=== PATIENT | female | born 1965 | race Caucasian/White ===

== ENCOUNTER 2019-09-18 10:54 | Outpatient (CLI) | payer MEDICARE, OTHER, SELFPAY ==
[2019-09-18 12:56] LABS: TSH 12.86 uIU/mL (0.36-3.74)
[2019-09-18 18:20] LABS: T3, Total 65 ng/dL (97-169)
== END 2019-09-18 11:14 ==
PROVIDERS: PCP Internal Medicine; Visit Provider Internal Medicine Endocrinology, Diabetes & Metabolism
DX: E03.9 Hypothyroidism, unspecified (principal)
CPT/HCPCS: 36415; 84439; 84443; 84480

== ENCOUNTER 2020-07-07 10:47 | Outpatient (CLI) | payer MEDICARE, OTHER, SELFPAY ==
--- NOTE | 2020-07-07 09:00 | DI.RAD_ITS ---
EXAM: XR KNEE LT 3V AP,LAT,KUSHAL CLINICAL HISTORY: left knee pain. TECHNIQUE: 2D digital imaging was performed. COMPARISON: CR RIGHT KNEE 3 VIEWS from 01/12/2016 FINDINGS: BONES: No acute fracture is present. No bony destructive lesion is seen. JOINTS: There is mild periarticular spurring. Joint spaces are well maintained. No joint effusion i s seen. SOFT TISSUE: Normal. IMPRESSION: Mild degenerative changes. DATA REPOSITORY: RADIATION DOSE DELIVERED:
== END 2020-07-07 11:07 ==
PROVIDERS: PCP Nurse Practitioner Adult Health; Referring Provider Nurse Practitioner Adult Health; Visit Provider Student in an Organized Health Care Education/Training Program
DX: M17.12 Unilateral primary osteoarthritis, left knee (principal); M25.562 Pain in left knee; G89.29 Other chronic pain
CPT/HCPCS: 73562; 99204

== ENCOUNTER 2020-07-15 04:01 | Outpatient (CLI) | payer MEDICARE, OTHER, SELFPAY ==
[2020-07-15 17:16] LABS: COMMENT (LAB VIEW ONLY) 70.48 mg/dL; Microalb ug/mg Crea 29.8 ug/mg Cr
[2020-07-15 17:40] LABS: ALT 30 U/L (14-59); AST 33 U/L (15-37); Albumin 3.8 g/dL (3.4-5.0); Alkaline Phosphatase 294 U/L (46-116); Anion Gap 8.9 mmol/L (3-11); BUN 8 mg/dL (7-18); Bilirubin, Total 1.8 mg/dL (0.2-1.0); CO2 26.1 mmol/L (21.0-32.0); CREATININE 1.03 mg/dL (0.55-1.02); Calcium 8.6 mg/dL (8.5-10.1); Calculated LDL 64 mg/dL (<100); Chloride 98 mmol/L (98-107); Cholesterol 170 mg/dL (<200); Estimated GFR 55.84 (mL/min/1.73m2); Glucose 432 mg/dL (74-106); HDL Cholesterol 37 mg/dL (40-60); Potassium 3.7 mmol/L (3.5-5.1); Sodium 133 mmol/L (136-145); TSH (W/Ref FT4) 2.11 uIU/mL (0.36-3.74); Total Protein 7.5 g/dL (6.4-8.2); Triglyceride 348 mg/dL (<150)
[2020-07-17 10:17] LABS: HIV-1/2 Ag & Ab Screen Negative (Negative)
== END 2020-07-15 04:21 ==
PROVIDERS: PCP Nurse Practitioner Adult Health; Visit Provider Nurse Practitioner Adult Health
DX: E78.5 Hyperlipidemia, unspecified (principal); E66.9 Obesity, unspecified; K30 Functional dyspepsia; K75.81 Nonalcoholic steatohepatitis (NASH); E03.9 Hypothyroidism, unspecified; F41.1 Generalized anxiety disorder; F32.9 Major depressive disorder, single episode, unspecified; K21.9 Gastro-esophageal reflux disease without esophagitis
CPT/HCPCS: 36415; 80053; 80061; 87389; 82043; 82570; 84443

== ENCOUNTER 2020-10-16 16:40 | Outpatient (REF) | payer MEDICARE, OTHER, SELFPAY ==
[2020-10-16 18:38] LABS: ALT 35 U/L (14-59); AST 37 U/L (15-37); Alkaline Phosphatase 187 U/L (46-116); Anion Gap 12.1 mmol/L (3-11); BUN 6 mg/dL (7-18); Bilirubin, Total 0.7 mg/dL (0.2-1.0); CO2 24.9 mmol/L (21.0-32.0); Chloride 102 mmol/L (98-107); Glucose 104 mg/dL (74-106); Potassium 3.8 mmol/L (3.5-5.1); Sodium 139 mmol/L (136-145); TSH (W/Ref FT4) 0.16 uIU/mL (0.36-3.74); Total Protein 7.3 g/dL (6.4-8.2)
[2020-10-16 19:49] LABS: FREE T4 2.04 ng/dL (0.76-1.46)
== END 2020-10-16 17:00 ==
LOC: LBO 16:40
PROVIDERS: PCP Nurse Practitioner Adult Health; Visit Provider Nurse Practitioner Adult Health
DX: E03.9 Hypothyroidism, unspecified (principal); E87.1 Hypo-osmolality and hyponatremia; R53.83 Other fatigue; K74.60 Unspecified cirrhosis of liver
CPT/HCPCS: 80053; 84439; 84443

== ENCOUNTER 2020-10-26 01:24 | Outpatient (CLI) | payer MEDICARE, OTHER, SELFPAY ==
--- NOTE | 2020-10-26 14:15 | DI.RAD_ITS ---
EXAM: XR RIBS RT W PA LAT CHEST CLINICAL HISTORY: r/o bony abnorm fx; failed PT, rt sided pain,. TECHNIQUE: 2D digital imaging was performed. COMPARISON: CR RIGHT SHOULDER COMPLETE from 01/12/2016 FINDINGS: Heart size is normal. Mediastinum not widened. Lungs are clear. No pleural effusions. No pneumoth orax. Limited images of the right rib cage do not reveal an obvious fracture. Right clavicle is intact. A C joint not distracted. IMPRESSION: No obvious right rib fracture or rib lesion. No acute pulmonary findings. No pneumothorax. DATA REPOSITORY: RADIATION DOSE DELIVERED:
--- NOTE | 2020-10-26 14:15 | DI.RAD_ITS ---
EXAM: XR THORACIC SPINE COMPLETE CLINICAL HISTORY: r/o bony abnorm fx; failed PT,thoracic back pain,m54.6. TECHNIQUE: 2D digital imaging was performed. COMPARISON: CR THORACIC SPINE from 02/08/2012 FINDINGS: There is no evidence of fracture nor listhesis nor disc space narrowing. No abnormal widening of the paraspinal lines. No significant scoliosis. IMPRESSION: No significant radiograph findings in the on these two views of the thoracic spinal column. DATA REPOSITORY: RADIATION DOSE DELIVERED:
== END 2020-10-26 01:44 ==
PROVIDERS: PCP Nurse Practitioner Adult Health; Visit Provider Nurse Practitioner Adult Health
DX: M54.6 Pain in thoracic spine (principal); R10.9 Unspecified abdominal pain
CPT/HCPCS: 71046; 71100; 72072

== ENCOUNTER 2020-10-26 11:18 | Emergency (ER) | payer MEDICARE, OTHER, SELFPAY ==
[2020-10-26 11:23] VITALS: BP 120/60; PULSE 96; RESP 18; TEMP 36.3; O2SAT 96
--- OUTSIDE RECORDS SUMMARY | 2020-10-26 11:52 | XMS_ITS | Continuity of Care Document ---
:1965 Author Organization [facility] Care Team Providers Name Role Phone [facility] Unavailable Unavailable Social History Combined list of available smoking, tobacco, and other social history on record at [facility] and/or [facility] facilities. The included entries comply with the patient's data sharing authorizations. Social History Response Date Comment Source Type This section is an [facility] empty social history section.
[2020-10-26 12:41] LABS: Abs Immature Grans 0.02 10^3/uL (0.0-0.06); Absolute Basophil Count 0.04 10^3/uL (0.0-0.2); Absolute Eosinophil Count 0.01 10^3/uL (0.0-0.7); Absolute Lymphocyte Count 1.29 10^3/uL (1.2-3.4); Absolute Monocyte Count 0.28 10^3/uL (0.1-0.8); Absolute Neutrophil Count 4.54 10^3/uL (1.2-6.7); Basophils % 0.6; Eosinophils % 0.2; HCT 38.8 % (36.0-46.0); HGB 12.1 g/dL (11.2-15.7); Immature Grans % 0.3; Lymphocytes % 20.9; MCH 30.1 pg (27.0-33.0); MCHC 31.2 % (32.0-36.0); MCV 96.5 fL (80-95); MPV 8.9 fL (8.0-11.0); Monocytes % 4.5; Neutrophils % 73.5; Nucleated RBC 0 %; Platelet Count 166 10^3/uL (130-400); RBC 4.02 10^6/uL (3.93-5.22); RDW 14.2 % (11.7-14.6); RDW-SD 50.3 fL; WBC 6.18 10^3/uL (4.4-10.8)
[2020-10-26 13:00] LABS: ALT 41 U/L (14-59); AST 39 U/L (15-37); Albumin 4.4 g/dL (3.4-5.0); Alkaline Phosphatase 193 U/L (46-116); Anion Gap 10.1 mmol/L (3-11); BUN 7 mg/dL (7-18); Bilirubin, Total 0.9 mg/dL (0.2-1.0); CO2 25.9 mmol/L (21.0-32.0); Calcium 9.6 mg/dL (8.5-10.1); Chloride 104 mmol/L (98-107); Glucose 98 mg/dL (74-106); Potassium 3.9 mmol/L (3.5-5.1); Sodium 140 mmol/L (136-145); Total Protein 8.5 g/dL (6.4-8.2)
--- NOTE | 2020-10-26 14:15 | DI.RAD_ITS ---
EXAM: XR LUMBAR SPINE COMPLETE CLINICAL HISTORY: low back pain, acute on chronic. TECHNIQUE: 2D digital imaging was performed. COMPARISON: No exams were available for comparison FINDINGS: There is no evidence of fracture or listhesis or pars defects. Disc spaces exhibit normal height. T here is no scoliosis. No osseous lesions. Facet joints unremarkable. Relatively rudimentary 12th r ibs are noted. Sacroiliac joints unremarkable. IMPRESSION: No significant radiographic findings in the lumbosacral spinal column. DATA REPOSITORY: RADIATION DOSE DELIVERED:
--- NOTE | 2020-10-26 14:15 | DI.RAD_ITS ---
EXAM: XR KNEE LT 4V AP,LAT,KUSHAL,PAT CLINICAL HISTORY: trauma, knee pain. TECHNIQUE: 2D digital imaging was performed. COMPARISON: CR XR KNEE LT 3V AP,LAT,KUSHAL from 07/07/2020 FINDINGS: There is no evidence of acute fracture. Prominent anterior tibial tubercle is again noted, unchanged . Some irregularity in the appearance of the quadriceps tendon on the lateral view is noted. No abn ormality seen in the superior aspect of the patella. Again noted is an element of medial subluxation of the femoral condyles relative to the tibial platea u, approximately 6 millimeters. There is no prominent joint space narrowing. No large osteophytes. IMPRESSION: Findings as above the with minimal any significant radiographic change compared to 07/07/2020. DATA REPOSITORY: RADIATION DOSE DELIVERED:
[2020-10-26 15:04] LABS: Bilirubin Negative (Negative); Blood Negative (Negative); Clarity Clear (Clear); Glucose Negative (Negative); Ketones Negative (Negative); Leukocyte Esterase Negative (Negative); Nitrite Negative (Negative)
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
[2020-10-26 15:22] VITALS: BP 98/64; PULSE 87; RESP 17; TEMP 36.4; O2SAT 97
[2020-10-26 15:46] VITALS: BP 125/77; PULSE 96; RESP 18; O2SAT 97
--- NOTE | 2020-12-09 15:07 | NUR.NOTE ---
Nursing Note: Accessed patient record to fax the provider note to [facility]. Jaz Ribeiro
== END 2020-10-26 16:24 | disposition home or self-care (01) ==
PROVIDERS: Emergency Provider Student in an Organized Health Care Education/Training Program; PCP Nurse Practitioner Adult Health
DX: M54.5 Low back pain (principal); M25.562 Pain in left knee; G89.29 Other chronic pain; X50.9XXA Other and unspecified overexertion or strenuous movements or postures, initial encounter; E11.9 Type 2 diabetes mellitus without complications; Z79.84 Long term (current) use of oral hypoglycemic drugs; R10.9 Unspecified abdominal pain
CPT/HCPCS: 29505; 36415; 80053; 99284; U0003; 71046; 71100; 72072; 72110; 73564; 81003; 85025

== ENCOUNTER 2020-12-28 01:53 | Outpatient (CLI) | payer MEDICARE, OTHER, SELFPAY ==
--- NOTE | 2020-12-28 | DI.US_ITS ---
EXAM: US ABDOMEN CLINICAL HISTORY: LAUGHLIN CIRRHOSIS, SCREENING FOR HEPATOMA, ASCITES, ETC TECHNIQUE: Ultrasound abdomen performed using standard protocol. COMPARISON: No exams were available for comparison FINDINGS: ABDOMINAL AORTA AND IVC: Visualized portions normal caliber. PANCREAS: Normal where visualized. LIVER: The liver measures 20.0 cm in length. There is diffuse increased echogenicity of the liver co nsistent with hepatic steatosis. Hepatopedal flow in the Portal Vein. No hepatic mass is seen sonogr aphically. GALLBLADDER: No evidence of cholelithiasis. No evidence of wall thickening. No pericholecystic fluid identified. BILIARY SYSTEM: Common bile duct measures < 7 mm. No intrahepatic biliary ductal dilation. BRADSHAW'S SIGN: Negative. KIDNEYS: Kidneys are symmetric in size. No evidence of renal calculi. No evidence of hydronephrosis. No renal mass or cyst identified. SPLEEN: The spleen measures 18.7 cm in length. ASCITES: None seen. IMPRESSION: 1. Hepatosplenomegaly and hepatic steatosis. 2. No evidence of a hepatic mass sonographically. DATA REPOSITORY:
== END 2020-12-28 02:13 ==
PROVIDERS: PCP Nurse Practitioner Adult Health; Visit Provider Physician Assistant Medical
DX: K76.0 Fatty (change of) liver, not elsewhere classified (principal); R16.0 Hepatomegaly, not elsewhere classified
CPT/HCPCS: 76700

== ENCOUNTER 2020-12-28 04:27 | Outpatient (CLI) | payer MEDICARE, OTHER, SELFPAY ==
[2020-12-28 08:17] LABS: Abs Immature Grans 0.02 10^3/uL (0.0-0.06); Absolute Basophil Count 0.03 10^3/uL (0.0-0.2); Absolute Lymphocyte Count 1.28 10^3/uL (1.2-3.4); Absolute Monocyte Count 0.22 10^3/uL (0.1-0.8); Absolute Neutrophil Count 3.94 10^3/uL (1.2-6.7); Basophils % 0.5; HCT 39.9 % (36.0-46.0); HGB 12.7 g/dL (11.2-15.7); Immature Grans % 0.4; Lymphocytes % 23.3; MCH 28.7 pg (27.0-33.0); MCHC 31.8 % (32.0-36.0); MCV 90.1 fL (80-95); MPV 9.1 fL (8.0-11.0); Neutrophils % 71.8; Nucleated RBC 0 %; Platelet Count 140 10^3/uL (130-400); RBC 4.43 10^6/uL (3.93-5.22); RDW 13.9 % (11.7-14.6); RDW-SD 45.7 fL; WBC 5.49 10^3/uL (4.4-10.8)
[2020-12-28 08:26] LABS: INR 1.1 (0.9-1.1)
[2020-12-28 08:42] LABS: Ammonia 28 umol/L (11-32)
[2020-12-28 09:28] LABS: ALT 45 U/L (14-59); AST 33 U/L (15-37); Albumin 3.9 g/dL (3.4-5.0); Alkaline Phosphatase 175 U/L (46-116); Anion Gap 10.3 mmol/L (3-11); BUN 10 mg/dL (7-18); Bilirubin, Total 0.6 mg/dL (0.2-1.0); CO2 25.7 mmol/L (21.0-32.0); CREATININE 0.8 mg/dL (0.55-1.02); Calcium 8.9 mg/dL (8.5-10.1); Chloride 103 mmol/L (98-107); FREE T4 1.77 ng/dL (0.76-1.46); Glucose 116 mg/dL (74-106); Potassium 3.9 mmol/L (3.5-5.1); Sodium 139 mmol/L (136-145); Total Protein 7.4 g/dL (6.4-8.2)
[2020-12-28 09:32] LABS: TSH 0.18 uIU/mL (0.36-3.74)
[2020-12-30 09:23] LABS: AFP Tumor Marker 2.6 ng/mL (<8.1)
[2020-12-30 13:10] LABS: Hemoglobin A1C 5.5 % (<5.7)
== END 2020-12-28 04:28 | disposition home or self-care (01) ==
PROVIDERS: PCP Nurse Practitioner Adult Health; Visit Provider Internal Medicine Gastroenterology
DX: K75.81 Nonalcoholic steatohepatitis (NASH) (principal); K74.60 Unspecified cirrhosis of liver; E03.9 Hypothyroidism, unspecified; K76.0 Fatty (change of) liver, not elsewhere classified; R16.0 Hepatomegaly, not elsewhere classified
CPT/HCPCS: 36415; 80053; 76700; 82105; 82140; 83036; 84439; 84443; 85025; 85610

== ENCOUNTER → 2021-02-18 13:03 | Outpatient (BNVA) | payer MEDICARE, OTHER, SELFPAY | PROVIDERS: PCP Nurse Practitioner Adult Health; Referring Provider Nurse Practitioner Adult Health; Visit Provider Student in an Organized Health Care Education/Training Program | DX: M25.562 Pain in left knee (principal); G89.29 Other chronic pain; E11.9 Type 2 diabetes mellitus without complications; Z98.890 Other specified postprocedural states; Z79.1 Long term (current) use of non-steroidal anti-inflammatories (NSAID) | CPT/HCPCS: 99214 ==

== ENCOUNTER 2021-03-11 01:01 | Outpatient (CLI) | payer MEDICARE, OTHER, SELFPAY ==
--- NOTE | 2021-03-11 09:30 | DI.MRI_ITS ---
Exam(s) MR LOWER JOINT LT WO EXAM: MR LOWER JOINT LT WO CLINICAL HISTORY: Pain, ARTHRITIS LT KNEE, M17.12 TECHNIQUE: Multiplanar multisequence MRI of the knee was performed. COMPARISON: CR XR KNEE LT 4V AP,LAT,KUSHAL,PAT from 10/26/2020 FINDINGS: EFFUSION: There is a minimal amount of increased joint fluid. There is no large joint effusion. The re is no Herbert cyst in the popliteal fossa. SOFT TISSUES: There is fatty atrophy of all of the musculature of the visualized lower thigh. MARROW:There is no evidence of fracture, bone contusion, nor osteochondral defects.. There are no si gnificant osseous lesions. PATELLOFEMORAL COMPARTMENT: There is prominence of the anterior tibial tubercle noted without abnorma l intraosseous signal. Correlation with any history of prior osteotomy recommended. There is promin ent patellar insertion on the anterior tibial tubercle without abnormal signal. Also no significant signal in the subcutaneous tissues anterior to the patellar ligament nor behind the patellar ligament within the anterior intra-articular Hoffa fat pad. There is no evidence of tear of the visualized d istal quadriceps. There is some thinning of the retropatellar cartilage, slightly more so laterally than medially. No abnormal intraosseous signal seen within the posterior patella. No patellar retinacular tears eviden t. No intraosseous signal to suggest recent patellar dislocation. CRUCIATE LIGAMENTS: The anterior cruciate ligament is intact.The posterior cruciate ligament is intac t. MEDIAL COMPARTMENT/MEDIAL MENISCUS: Substance of the anterior and posterior horns of the medial menis cus is thin but without evidence of tear. Meniscal root is intact. Mild-moderate degenerative lara es are noted in the cartilage over the medial femoral condyle. Noosteochondral defects. No osteophy fariba.. MEDIAL COLLATERAL LIGAMENT: Intact LATERAL COMPARTMENT/LATERAL MENISCUS: Also attenuation of the substance of the lateral meniscus but w ithout true tear signal.. No meniscal extrusion. Minimal degenerative changes over the in the Highl and cartilage over the condyle. No osteochondral defects.. No marginal osteophytes. ILIOTIBIAL BAND: Intact LATERAL COLLATERAL LIGAMENT COMPLEX: The fibular collateral ligament is intact. The biceps femoris t endon is intact.Popliteus muscle and tendon are intact. IMPRESSION: 1. The meniscal substance is thin in both the mediolateral compartments but without convincing eviden ce of the true meniscal tears, meniscocapsular separation, meniscal extrusion nor intrusion, nor dege nerative meniscal cysts. 2. Cruciate and collateral ligaments appear intact as does the iliotibial band. 3. Somewhat prominent anterior tibial tubercle and tubercular catch mint surface of the patellar liga ment but without abnormal intraosseous signal nor intra tendinous signal at this level nor in the adj acent pre ligamentous and anterior Hoffa fat. 4. There is generalized fatty atrophy of the musculature in the thigh involving all visualized muscle groups anterior as well as posterior. 5. Small amount of increased joint fluid. No large joint effusion. No Herbert cyst. DATA REPOSITORY:
== END 2021-03-11 01:21 ==
PROVIDERS: PCP Nurse Practitioner Adult Health; Visit Provider Student in an Organized Health Care Education/Training Program
DX: M25.562 Pain in left knee (principal); M17.12 Unilateral primary osteoarthritis, left knee; M25.462 Effusion, left knee; M62.552 Muscle wasting and atrophy, not elsewhere classified, left thigh
CPT/HCPCS: 73721

== ENCOUNTER 2021-03-11 02:09 | Outpatient (CLI) | payer MEDICARE, OTHER, SELFPAY ==
[2021-03-11 15:50] LABS: Abs Immature Grans 0.01 10^3/uL (0.0-0.06); Absolute Basophil Count 0.02 10^3/uL (0.0-0.2); Absolute Lymphocyte Count 1.39 10^3/uL (1.2-3.4); Absolute Neutrophil Count 3.06 10^3/uL (1.2-6.7); Basophils % 0.4; ESR 31 mm//hr (0-30); HCT 40.7 % (36.0-46.0); HGB 12.7 g/dL (11.2-15.7); Immature Grans % 0.2; Lymphocytes % 29.7; MCH 27.4 pg (27.0-33.0); MCHC 31.2 % (32.0-36.0); MCV 87.7 fL (80-95); MPV 9.5 fL (8.0-11.0); Monocytes % 4.3; Neutrophils % 65.4; Nucleated RBC 0 %; Platelet Count 109 10^3/uL (130-400); RBC 4.64 10^6/uL (3.93-5.22); RDW 15.2 % (11.7-14.6); RDW-SD 48.7 fL; WBC 4.68 10^3/uL (4.4-10.8)
[2021-03-11 16:22] LABS: Hemoglobin A1C 6.1 % (<5.7)
[2021-03-11 17:03] LABS: C-Reactive Protein 1.28 mg/dL (0.0-0.3); TSH (W/Ref FT4) 6.77 uIU/mL (0.36-3.74)
[2021-03-11 17:30] LABS: FREE T4 1.18 ng/dL (0.76-1.46)
== END 2021-03-11 02:10 | disposition home or self-care (01) ==
PROVIDERS: PCP Nurse Practitioner Adult Health; Visit Provider Student in an Organized Health Care Education/Training Program
DX: E11.9 Type 2 diabetes mellitus without complications (principal); G89.29 Other chronic pain; M25.562 Pain in left knee; M25.462 Effusion, left knee; M17.12 Unilateral primary osteoarthritis, left knee; M62.552 Muscle wasting and atrophy, not elsewhere classified, left thigh
CPT/HCPCS: 36415; 73721; 85652; 83036; 84439; 84443; 85025; 86140

== ENCOUNTER → 2021-03-25 07:53 | Outpatient (BNVA) | payer MEDICARE, OTHER, SELFPAY | PROVIDERS: PCP Nurse Practitioner Adult Health; Referring Provider Nurse Practitioner Adult Health; Visit Provider Student in an Organized Health Care Education/Training Program | DX: M25.562 Pain in left knee (principal); G89.29 Other chronic pain | CPT/HCPCS: 20610; J1040 ==

== ENCOUNTER 2021-03-25 14:40 | Outpatient (REF) | payer MEDICARE, OTHER, SELFPAY | END 2021-03-25 14:41 | disposition home or self-care (01) | LOC: LBN 14:40 | PROVIDERS: PCP Nurse Practitioner Adult Health; Visit Provider Student in an Organized Health Care Education/Training Program | DX: M25.562 Pain in left knee (principal); M25.462 Effusion, left knee; G89.29 Other chronic pain | CPT/HCPCS: 87070; 87205 ==

== ENCOUNTER 2021-05-24 15:54 | Emergency (ER) | payer MEDICARE, OTHER, SELFPAY ==
[2021-05-24 15:57] VITALS: BP 128/74; PULSE 79; RESP 18; TEMP 37.3; O2SAT 96
--- NOTE | 2021-05-24 16:00 | DI.CT_ITS ---
Exam(s) CT ABDOMEN PELVIS W EXAM: CT ABDOMEN PELVIS W CLINICAL HISTORY: Abdominal Pain TECHNIQUE: Imaging Protocol: Axial computed tomography images with coronal and sagittal reformatted images were created and reviewed CONTRAST MATERIAL: Intravenous: Omnipaque 350 Contrast volume:92 mL Oral: No COMPARISON: CT CT ABDOMEN AND PELVIS W CONTRAST from 11/07/2019 FINDINGS: ABDOMEN: Lung Bases: Normal where visualized. Liver: Fatty infiltration of the liver. The liver measures 20.2 cm in length. No measurable mass. Portal, Superior Mesenteric, and Splenic Veins: Unremarkable. Gallbladder and Biliary Tract: No radiodense calculus or dilation. Pancreas: Normal density, no abnormal calcifications or inflammatory process. Spleen: The spleen measures 19 cm in length. Adrenals: No masses seen. Kidneys: Normal size, contour and axis. No radiodense stones or obstructive uropathy. No masses seen. Abdominal Aorta: Abdominal portion non-dilated. Atherosclerosis. Bowel: No evidence of bowel obstruction. There is mild wall thickening seen throughout the colon. M ild pericolonic stranding is seen particularly around the sigmoid colon and the ascending and proxima l transverse colon. There is a normal retrocecal appendix. There are few diverticula in the colon. Peritoneal Cavity: Small amount of perihepatic ascites. Mild stranding in the mesentery. No free ai r. Lymph Nodes: Mildly enlarged retroperitoneal and mesenteric lymph nodes. Bones: Within normal limits for the patient's age. Soft Tissues: Unremarkable. PELVIS: Bladder: Symmetric distention, no gross wall thickening. Reproductive Organs: Status post hysterectomy. Lymph Nodes: Within normal limits. Bones: Within normal limits for the patient's age. IMPRESSION: 1. Mild diffuse bowel wall thickening and pericolonic stranding. This is suspicious for an inflammat ory infectious colitis. 2. Splenomegaly and hepatomegaly. Hepatic steatosis. 3. Mildly prominent lymph nodes. These may be reactive related to the bowel abnormalities. Lymphoma cannot be entirely excluded given the splenomegaly. Please correlate clinically. RADIATION DOSE DELIVERED: 1,224.38mGy.cm Total DLP DATA REPOSITORY: All CT scans at this facility are submitted to the National Radiology Data Registry (NRDR) Dose Index Registry (DIR) with the [employer] (ACR). RADIATION OPTIMIZATION: All CT scans at this facility use at least one of these dose optimization te chniques: automated exposure control; mA and/or kV adjustment per patient size (includes targeted exa ms where dose is matched to clinical indication); or iterative reconstruction.
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
[2021-05-24 16:21] LABS: Abs Immature Grans 0.02 10^3/uL (0.0-0.06); Absolute Basophil Count 0.01 10^3/uL (0.0-0.2); Absolute Eosinophil Count 0.01 10^3/uL (0.0-0.7); Absolute Lymphocyte Count 1.31 10^3/uL (1.2-3.4); Absolute Monocyte Count 0.23 10^3/uL (0.1-0.8); Basophils % 0.3; Eosinophils % 0.3; HCT 36.4 % (36.0-46.0); HGB 11.8 g/dL (11.2-15.7); Immature Grans % 0.5; Lymphocytes % 32.9; MCH 28.5 pg (27.0-33.0); MCHC 32.4 % (32.0-36.0); MCV 87.9 fL (80-95); Monocytes % 5.8; Neutrophils % 60.2; Nucleated RBC 0 %; Platelet Count 101 10^3/uL (130-400); RBC 4.14 10^6/uL (3.93-5.22); RDW 15.4 % (11.7-14.6); RDW-SD 49.6 fL; WBC 3.98 10^3/uL (4.4-10.8)
[2021-05-24 16:34] LABS: ALT 40 U/L (14-59); AST 32 U/L (15-37); Albumin 3.9 g/dL (3.4-5.0); Alkaline Phosphatase 138 U/L (46-116); Anion Gap 10.9 mmol/L (3-11); BUN 8 mg/dL (7-18); Bilirubin, Total 0.5 mg/dL (0.2-1.0); CO2 26.1 mmol/L (21.0-32.0); CREATININE 0.9 mg/dL (0.55-1.02); Calcium 8.8 mg/dL (8.5-10.1); Chloride 102 mmol/L (98-107); Glucose 115 mg/dL (74-106); Lipase 57 U/L (73-393); Magnesium 1.8 mg/dL (1.8-2.4); Potassium 3.7 mmol/L (3.5-5.1); Sodium 139 mmol/L (136-145); Total Protein 7.3 g/dL (6.4-8.2)
[2021-05-24 16:34] LABS: Bilirubin Negative (Negative); Blood Negative (Negative); Clarity Clear (Clear); Glucose Negative (Negative); Ketones Negative (Negative); Leukocyte Esterase Trace (Negative); Nitrite Negative (Negative); Specific Gravity 1.015 (1.005-1.025); Urobilinogen 0.2 EU/dL (Up TO 0.2); pH 7.5 (5-8)
[2021-05-24 16:41] LABS: Bacteria Few HPF (Negative); Casts Negative LPF (Negative); Crystals Negative HPF (Negative); Epithelial Cells Few HPF (Negative); Mucus Negative (Negative); RBC 0-2 HPF (0-2)
[2021-05-24 16:42] LABS: C & S Indicated? Yes
[2021-05-24] MEDS: Omnipaque 350 MG/ML 100 ML BTL IJ (16:57)
[2021-05-24] MEDS: Normal Saline - Diluent 50 ML VIAL IV (16:57)
--- NOTE | 2021-05-24 17:37 | DI.VRAD_ITS ---
PROCEDURE INFORMATION: Exam: CT Abdomen And Pelvis With Contrast Exam date and time: 05/24/2021 4:11 PM Age: 56 years old Clinical indication: Abdominal pain TECHNIQUE: Imaging protocol: Computed tomography of the abdomen and pelvis with contrast. COMPARISON: CT ABDOMEN AND PELVIS W CONTRAST 11/07/2019 2:23 AM FINDINGS: Liver: Liver appears slightly heterogeneous. Correlation for hepatic parenchymal disease is recommended especially in light of splenomegaly. Gallbladder and bile ducts: Gallbladder is mildly contracted. Pancreas: Normal. No ductal dilation. Spleen: Increased at least moderate splenic enlargement Adrenal glands: Normal. No mass. Kidneys and ureters: Normal. No hydronephrosis. Stomach and bowel: Mild diffuse colonic wall thickening is seen as well as pericolonic stranding. Findings appear worst in the proximal colon. Appendix: No evidence of appendicitis. Intraperitoneal space: Unremarkable. No free air. No significant fluid collection. Retroperitoneal space: Mild stranding in the retroperitoneum. Vasculature: Unremarkable. No abdominal aortic aneurysm. Lymph nodes: Scattered prominent mesenteric and retroperitoneal lymph nodes are seen. Urinary bladder: Unremarkable as visualized. Reproductive: Unremarkable as visualized. Bones/joints: Unremarkable. No acute fracture. Soft tissues: Unremarkable. IMPRESSION: Mild diffuse colonic wall thickening and pericolonic stranded noting. This may be due to colitis. There is some additional stranding in the retroperitoneum and mesentery as well as mildly prominent lymph nodes. These findings may be reactive, but please correlate clinically for potential presentation of lymphoma especially in light of increasing splenomegaly. Dictated and Authenticated by: Eriberto العراقي MD. Ordering:JARED Alvarenga MD
[2021-05-24] MEDS: Ciprofloxacin 500 MG TAB PO (18:33)
== END 2021-05-24 18:40 | disposition home or self-care (01) ==
PROVIDERS: Emergency Provider Registered Nurse Emergency; PCP Nurse Practitioner Adult Health
DX: K52.9 Noninfective gastroenteritis and colitis, unspecified (principal); N39.0 Urinary tract infection, site not specified; B96.89 Other specified bacterial agents as the cause of diseases classified elsewhere
CPT/HCPCS: 36415; 80053; 83690; 99285; 74177; 81003; 81015; 83735; 85025; 87086; 99283; J3490

== ENCOUNTER 2021-08-17 16:53 | Emergency (ER) | payer MEDICARE, OTHER, SELFPAY ==
[2021-08-17 16:58] VITALS: BP 133/70; PULSE 85; RESP 16; TEMP 36.8; O2SAT 96
--- NOTE | 2021-08-17 17:30 | DI.CT_ITS ---
Exam(s) CT ABDOMEN PELVIS W EXAM: CT ABDOMEN PELVIS W CLINICAL HISTORY: abdominal pain worsening TECHNIQUE: Imaging Protocol: Axial computed tomography images with coronal and sagittal reformatted images were created and reviewed CONTRAST MATERIAL: Intravenous: Omnipaque 350 Contrast volume:100 mL Oral: No COMPARISON: CT CT ABDOMEN PELVIS W from 05/24/2021 FINDINGS: ABDOMEN: Lung Bases: Normal where visualized. Liver: Normal density. No measurable mass. The liver shows a mildly nodular contour. Hepatic cirrhos is cannot be excluded. Portal, Superior Mesenteric, and Splenic Veins: Unremarkable. Gallbladder and Biliary Tract: No radiodense calculus or dilation. Pancreas: Normal density, no abnormal calcifications or inflammatory process. Spleen: Unchanged splenomegaly measuring 19 cm. Adrenals: No masses seen. Kidneys: Normal size, contour and axis. No radiodense stones or obstructive uropathy. No masses seen. Abdominal Aorta: Abdominal portion non-dilated. Atherosclerosis. Bowel: No obstruction or bowel wall thickening. Appendix is unremarkable. Diverticulosis of the colon but no evidence of acute diverticulitis. Peritoneal Cavity: No ascites. Unchanged increased attenuation in retroperitoneum anterior to the ao rta. This is nonspecific and may be chronic or represent a mild inflammatory mesenteritis. No free air. Lymph Nodes: Stable mildly enlarged abdominal lymph nodes. Bones: Within normal limits for the patient's age. Soft Tissues: Unremarkable. PELVIS: Bladder: Symmetric distention, no gross wall thickening. Reproductive Organs: Status post hysterectomy. Lymph Nodes: Within normal limits. Bones: Within normal limits for the patient's age. IMPRESSION: 1. No acute abdominal or pelvic process. 2. Stable splenomegaly. 3. Stable mild stranding in the retroperitoneum. This is of uncertain clinical significance. 4. Stable retroperitoneal lymph nodes. RADIATION DOSE DELIVERED: 1,120.81mGy.cm Total DLP DATA REPOSITORY: All CT scans at this facility are submitted to the National Radiology Data Registry (NRDR) Dose Index Registry (DIR) with the [employer] (ACR). RADIATION OPTIMIZATION: All CT scans at this facility use at least one of these dose optimization te chniques: automated exposure control; mA and/or kV adjustment per patient size (includes targeted exa ms where dose is matched to clinical indication); or iterative reconstruction.
[2021-08-17 17:58] LABS: Bilirubin Negative (Negative); Blood Negative (Negative); Clarity Clear (Clear); Glucose Negative (Negative); Ketones Negative (Negative); Leukocyte Esterase Negative (Negative); Nitrite Negative (Negative); Specific Gravity 1.015 (1.005-1.025); Urobilinogen 0.2 EU/dL (Up TO 0.2)
[2021-08-17 18:18] LABS: Ammonia 25 umol/L (11-32)
[2021-08-17 18:20] LABS: INR 1.1 (0.9-1.1); Prothrombin Time 11.2 sec (9.3-11.0)
[2021-08-17] MEDS: hydrOXYzine PAMOATE 25 MG CAP (18:29)
[2021-08-17] MEDS: HYDROmorphone 2 MG/ML VIAL 1 MG IVP ×2 (19:01→20:13)
--- NOTE | 2021-08-17 19:06 | NUR.NOTE ---
Nursing Note: Patient medicated as ordered by ER Provider for abd pain.
[2021-08-17 19:31] LABS: Abs Immature Grans 0.01 10^3/uL (0.0-0.06); Absolute Basophil Count 0.03 10^3/uL (0.0-0.2); Absolute Lymphocyte Count 1.31 10^3/uL (1.2-3.4); Absolute Monocyte Count 0.17 10^3/uL (0.1-0.8); Absolute Neutrophil Count 2.23 10^3/uL (1.2-6.7); Basophils % 0.8; HGB 12.4 g/dL (11.2-15.7); Immature Grans % 0.3; Lymphocytes % 34.9; MCH 30.2 pg (27.0-33.0); MCHC 31.8 % (32.0-36.0); MCV 94.9 fL (80-95); MPV 9.6 fL (8.0-11.0); Monocytes % 4.5; Neutrophils % 59.5; Nucleated RBC 0 %; Platelet Count 126 10^3/uL (130-400); RBC 4.11 10^6/uL (3.93-5.22); RDW-SD 48.2 fL; WBC 3.75 10^3/uL (4.4-10.8)
[2021-08-17 19:35] LABS: ALT 38 U/L (14-59); AST 31 U/L (15-37); Albumin 4.4 g/dL (3.4-5.0); Alkaline Phosphatase 158 U/L (46-116); Anion Gap 10.9 mmol/L (3-11); BUN 7 mg/dL (7-18); Bilirubin, Total 0.6 mg/dL (0.2-1.0); CO2 25.1 mmol/L (21.0-32.0); Calcium 9.1 mg/dL (8.5-10.1); Chloride 107 mmol/L (98-107); Estimated GFR 57.56 (mL/min/1.73m2); Glucose 137 mg/dL (74-106); Lipase 83 U/L (73-393); Potassium 3.9 mmol/L (3.5-5.1); Sodium 143 mmol/L (136-145)
[2021-08-17] MEDS: Omnipaque 350 MG/ML 100 ML BTL IV (19:55)
[2021-08-17] MEDS: Normal Saline - Diluent 50 ML VIAL IV (19:56)
[2021-08-17 20:21] VITALS: BP 101/64; PULSE 78; RESP 16; O2SAT 95
--- NOTE | 2021-08-17 20:49 | DI.VRAD_ITS ---
PROCEDURE INFORMATION: Exam: CT Abdomen And Pelvis With Contrast Exam date and time: 08/17/2021 5:39 PM Age: 56 years old Clinical indication: Abdominal pain; Localized; Prior surgery; Surgery date: 6+ months; Surgery type: Hysterectomy; Patient HX: Lower abd pain for 4 days, HX of endomertiosis TECHNIQUE: Imaging protocol: Computed tomography of the abdomen and pelvis with contrast. Radiation optimization: All CT scans at this facility use at least one of these dose optimization techniques: automated exposure control; mA and/or kV adjustment per patient size (includes targeted exams where dose is matched to clinical indication); or iterative reconstruction. Contrast material: OMNIPAQUE 350; Contrast volume: 100 ml; Contrast route: INTRAVENOUS (IV); COMPARISON: CT ABDOMEN PELVIS W 05/24/2021 5:05 PM FINDINGS: Lungs: Lung bases are clear. Pleural spaces: No pleural effusion. Heart: Normal heart size. No pericardial effusion. Liver: Diffuse mild fatty liver change. Mild hepatic enlargement. No focal hepatic lesions. Portal and hepatic vein are patent. Gallbladder and bile ducts: Normal. No calcified stones. No ductal dilation. Pancreas: Normal. No ductal dilation. Spleen: Splenomegaly. Cephalo caudal length of spleen is 19 cm. There are no focal splenic lesions. Splenic vein is patent. Adrenal glands: The adrenal glands are normal in size and contour bilaterally. Kidneys and ureters: The kidneys bilaterally are unremarkable. Normal enhancement. No hydronephrosis. No calculi. Stomach and bowel: Gastric morphology is unremarkable. No edema. No gastric outlet obstruction.Small bowel loops are normal in course and caliber. There is no mucosal edema or bowel wall thickening. No obstructive features.The colon contains formed fecal material. There is no bowel wall thickening. No inflammatory features. No obstruction. Appendix: A non inflamed appendix is visible. See series 4, images 43 through 40. Intraperitoneal space: No free fluid in the abdomen. No free air. Retroperitoneal space: Nonspecific retroperitoneal fat with inflammation surrounding the region of the inferior mesenteric artery. See series 4, images 43 through 55. Significance of this is uncertain. This is unchanged since previous study 05/24/2021. This appears to represent a chronic retroperitoneal inflammatory process or residual change from a previous retroperitoneal process. Vasculature: Abdominal aorta atherosclerosis. No aneurysm. Lymph nodes: Subcentimeter retroperitoneal lymph nodes. Urinary bladder: Urinary bladder is unremarkable in appearance. Reproductive: Previous hysterectomy. Bones/joints: Unremarkable. No acute fracture. Soft tissues: Minor fat containing umbilical hernia. No evidence of strangulation. IMPRESSION: 1. Splenomegaly with cephalo caudal splenic length of 19 cm. 2. Persistent mild fatty stranding or inflammation within the retroperitoneum near the inferior mesenteric artery origin. See axial series 4, images 43 through 55. This is stable since previous study approximately 3 months ago. This is of uncertain significance. 3. Subcentimeter retroperitoneal lymph nodes. These are nonspecific in appearance and stable. 4. Mild diffuse fatty liver change. Mild hepatic enlargement. Dictated and Authenticated by: Jarrett Corral MD. Ordering:SHIRA Dinero MD
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
[2021-08-17 21:37] LABS: ESR 7 mm/hr (0-30)
[2021-08-17 21:39] LABS: Lactate 2.3 mmol/L (0.9-1.7)
[2021-08-17 21:47] LABS: C-Reactive Protein 1.06 mg/dL (0.0-0.3)
[2021-08-17 22:29] VITALS: BP 115/69; PULSE 76; TEMP 36.8; O2SAT 94
== END 2021-08-17 22:36 | disposition home or self-care (01) ==
PROVIDERS: Emergency Provider Physician Assistant; PCP Nurse Practitioner Adult Health
DX: R10.84 Generalized abdominal pain (principal); G89.29 Other chronic pain; F31.30 Bipolar disorder, current episode depressed, mild or moderate severity, unspecified
CPT/HCPCS: 36415; 80053; 81025; 83690; 85027; 85652; 96374; 96375; 96376; 99285; 74177; 81003; 82140; 83605; 85025; 85610; 86140; J3490

== ENCOUNTER 2022-02-14 16:24 | Outpatient (REF) | payer MEDICARE, OTHER, SELFPAY ==
[2022-02-14 20:00] LABS: Hemoglobin A1C 5.8 % (<5.7)
[2022-02-14 20:09] LABS: COMMENT (LAB VIEW ONLY) 69.02 mg/dL; Microalb ug/mg Crea 9.4 ug/mg Cr
[2022-02-14 20:11] LABS: ALT 29 U/L (14-59); AST 31 U/L (15-37); Alkaline Phosphatase 162 U/L (46-116); Anion Gap 10.4 mmol/L (3-11); BUN 10 mg/dL (7-18); Bilirubin, Total 0.5 mg/dL (0.2-1.0); CO2 24.6 mmol/L (21.0-32.0); Calcium 8.6 mg/dL (8.5-10.1); Calculated LDL 113 mg/dL (<100); Chloride 106 mmol/L (98-107); Cholesterol 216 mg/dL (<200); Estimated GFR 57.56 (mL/min/1.73m2); Glucose 109 mg/dL (74-106); HDL Cholesterol 53 mg/dL (40-60); Potassium 3.9 mmol/L (3.5-5.1); Sodium 141 mmol/L (136-145); TSH (W/Ref FT4) 2.27 uIU/mL (0.36-3.74); Total Protein 7.2 g/dL (6.4-8.2); Triglyceride 254 mg/dL (<150)
== END 2022-02-14 16:25 | disposition home or self-care (01) ==
LOC: LBN 16:24
PROVIDERS: PCP Nurse Practitioner Adult Health; Visit Provider Nurse Practitioner Adult Health
DX: E11.9 Type 2 diabetes mellitus without complications (principal); E03.9 Hypothyroidism, unspecified
CPT/HCPCS: 80053; 80061; 82043; 82570; 83036; 84443

== ENCOUNTER → 2022-03-21 02:00 | Outpatient (CLI) | payer MEDICARE, OTHER, SELFPAY ==
--- NOTE | 2022-03-21 08:30 | DI.MAMMO_ITS ---
Exam(s) MAMMO SCREENING EXAM: MAMMO SCREENING CLINICAL HISTORY: screening, Z12.39 TECHNIQUE: Mammograms were interpreted according to the usual protocol including computer analysis w [employer] CAD system, tomosynthesis and C-view imaging. COMPARISON: 2011 and 2016 FINDINGS: Left breast: The breasts are composed of heterogeneously dense fibroglandular densities, Breast Densi ty category C. No suspicious masses or suspicious microcalcifications are seen. No skin thickening or abnormal axillary lymph nodes are seen. There has been no significant change from prior exams. Right breast: 2 adjacent areas of nodularity are now noted in the post posterior the lower inner quad rant. No suspicious calcifications. No skin thickening. No abnormal lymph nodes. IMPRESSION: Right breast: Spot compression views and ultrasound are requested for further evaluation new areas of nodularity in the lower inner quadrant. BI-RADS Cat 0 - Assessment Incomplete: Need additional imaging evaluation Left breast: Yearly screening mammography is recommended. Breast Density Category C, heterogeneously Dense. The mammogram demonstrates the patient's breast tissue is dense. Dense breast tissue is very common a nd is not abnormal but dense breast tissue can make it harder to find cancer on a mammogram. Also, de nse breast tissue may increase breast cancer risk. This information about the result of the mammogram report was provided to the patient to raise their awareness. Use this report when you speak with the patient about their risks for breast cancer, which includes their family history. At that time, you may recommend additional screening tests (Ultrasound or MRI) as they might be useful based on their r isk. A negative radiographic report should not delay biopsy if a dominant or clinically suspicious mass is present. Up to ten percent of cancers are not identified on mammography. A negative report may reinforce clinical impression. Adenosis and dense breasts may obscure an underlying neoplasm. False positive reports average 6 to 10%.
--- NOTE | 2022-03-21 08:30 | DI.CTLCSR_ITS ---
Exam(s) CT CHEST LUNG CANCER SCREEN EXAM: CT CHEST LUNG CANCER SCREEN CLINICAL HISTORY: Screening for lung cancer, FORMER SMOKER, Z87.891 TECHNIQUE: Imaging Protocol: Axial computed tomography images with coronal and sagittal reformatted images were created and reviewed COMPARISON: CT CHEST ABD PELVIS WITH CONTRAST from 01/12/[address] ABDOMEN AND PELVIS W CONTRAST from 11/07/2019 FINDINGS: Tracheobronchial tree: Patent where visualized. Mediastinum and Jeny: No dominant adenopathy or fluid collection. Pulmonary parenchyma: No consolidation or dominant measurable mass. No architectural distortion. Lung Nodules: None. Pleura: No effusion or pneumothorax. Heart: The heart is not dilated. No coronary artery calcifications are seen. Aorta: Thoracic aorta non-dilated. Upper abdomen: Stable splenomegaly. Question nodular liver contour. No visible focal mass. Bones: Within normal limits. Soft Tissues: Unremarkable. IMPRESSION: No suspicious pulmonary nodules. Lung RADS Cat 1 - Negative: No nodules and definitely benign nodules Lung-RADS 1.0 CATEGORIES: Category 0 - Prior chest CT exam(s) being located for comparison. Category 1 - Annual screening in 12 months. No nodules or definitely benign nodules. Category 2 - Annual screening in 12 months. Benign appearance. Nodules with low likelihood of becomin g active cancer. Category 3 - 6-month follow-up. Probably benign. Short-term follow-up suggested. Nodules with low lik elihood of becoming active cancer. Category 4A - 3-month follow-up and CT/PET if >8 mm in size. Suspicious finding. Findings which requi re additional testing. Category 4B - Findings which require additional testing and tissue sampling. Category 4X - Category 3 or 4 nodules with additional features or imaging findings that increases the suspicion of malignancy. Modifier S- Potentially clinically significant findings (non lung cancer) RADIATION DOSE DELIVERED: 90.04mGy.cm Total DLP 2.21mGy CTDIvol DATA REPOSITORY: All CT scans at this facility are submitted to the National Radiology Data Registry (NRDR) Dose Index Registry (DIR) with the [employer] (ACR). RADIATION OPTIMIZATION: All CT scans at this facility use at least one of these dose optimization te chniques: automated exposure control; mA and/or kV adjustment per patient size (includes targeted exa ms where dose is matched to clinical indication); or iterative reconstruction.
== END ==
PROVIDERS: PCP Nurse Practitioner Adult Health; Visit Provider Nurse Practitioner Adult Health
DX: Z12.31 Encounter for screening mammogram for malignant neoplasm of breast (principal); R92.8 Other abnormal and inconclusive findings on diagnostic imaging of breast; Z12.2 Encounter for screening for malignant neoplasm of respiratory organs; Z87.891 Personal history of nicotine dependence
CPT/HCPCS: 71271; 77063; 77067

== ENCOUNTER → 2022-04-27 00:55 | Outpatient (CLI) | payer MEDICARE, OTHER, SELFPAY ==
--- NOTE | 2022-04-27 | DI.US_ITS ---
Exam(s) MG MAMMO SCREEN CALL BACK UNI US BREAST LT COMPLETE US BREAST RT COMPLETE EXAM: US BREAST RT COMPLETE CLINICAL HISTORY: 2 ADJACENT AREAS OF NODULARITY, RT BREAST, LOWER INNER QUADRANT TECHNIQUE: Ultrasound performed using standard protocol. COMPARISON: US US ABDOMEN from 12/28/2020 FINDINGS: Additional mammographic views of the right breast and right breast ultrasound are interpreted in conj unction. These examinations were obtained to evaluate 2 areas of nodularity seen in the medial posterior aspec t of right breast on recent mammogram. Additionally, whole breast ultrasound of both breasts was performed. Corresponding to the initially identified mammographic abnormality, spot compression views confirm 2 irregular masses at this site. Breast ultrasound shows 2 masses in the 3 o'clock position of the rig ht breast, 1 about 3 cm from the nipple and the other about 5 cm from the nipple. The smaller measur es about 15 x 8 x 5 millimeters and the larger measures 22 x 7 x 8 millimeters. These both show hete rogeneous hypoechoic echotexture with irregular margins and posterior acoustic shadowing, highly susp icious for breast carcinoma. Whole breast scanning obtained bilaterally shows no significant additional lesion. IMPRESSION: Findings as described above are highly suggestive of breast carcinoma in the medial aspect of the rig ht breast as described above. Biopsy recommended for confirmation. BI-RADS Cat 5 - Highly Suggestive of Malignancy: Biopsy recommended Breast Density - Category C - Heterogeneously dense DATA REPOSITORY:
== END ==
PROVIDERS: PCP Nurse Practitioner Adult Health; Visit Provider Nurse Practitioner Adult Health
DX: Z12.31 Encounter for screening mammogram for malignant neoplasm of breast (principal); N63.15 Unspecified lump in the right breast, overlapping quadrants; R92.8 Other abnormal and inconclusive findings on diagnostic imaging of breast
CPT/HCPCS: 76642; 77063; 77067

== ENCOUNTER 2022-05-04 02:33 | Outpatient (CLI) | payer MEDICARE, OTHER, SELFPAY ==
[2022-05-04 15:25] LABS: Source Nasal/Nares
[2022-05-04 22:56] LABS: COVID-19 PCR Negative (Negative)
== END 2022-05-04 02:34 | disposition home or self-care (01) ==
LOC: LBO 02:33
PROVIDERS: Surgery; PCP Nurse Practitioner Adult Health; Visit Provider Surgery
DX: Z20.822 Contact with and (suspected) exposure to COVID-19 (principal); Z01.818 Encounter for other preprocedural examination
CPT/HCPCS: 87635

== ENCOUNTER 2022-05-06 12:56 | Day surgery (SDC) | payer MEDICARE, OTHER, SELFPAY ==
[2022-05-06 13:13] VITALS: BP 136/67; PULSE 80; RESP 18; TEMP 36.3; O2SAT 96
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
[2022-05-06 13:52] VITALS: BMI 30.4
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
[2022-05-06] MEDS: Lactated Ringers 1,000 ML 80 ML IV (14:18)
--- NOTE | 2022-05-06 14:45 | BREAST_PTH ---
PATIENT: Flora Marques LOC: [facility] U#:[id number] AGE/SX: 57/F ROOM: RE05/06/[address]: Elina Hobson MD : [id number] BED: DIS: 05/06/2022 SPEC #: [id number] RECD: 05/06/22 15:45 STATUS: ROMAN REQ #: [id number] TIANA: 05/06/22 14:[address]: Elina Hobson DEPT: Surgical Specimen RECD BY: Shruti Molina ENTERED: 05/06/22 15:48 SP TYPE: Breast OTHR DR: Jesi Aguirre APRN Tissues: 1 - BREAST BX NEEDLE Procedures: GROSS AND MICRO LEVEL 4 Her-2 Dual DAYANARA ESTROGEN/PROGESTERONE RECEPTOR IPEX STAIN Comments: [id number]
[2022-05-06] MEDS: Bupivacaine 0.25% Pres-Free 30 ML VIAL (14:46)
[2022-05-06 14:55] VITALS: BP 106/67; PULSE 74; RESP 16; TEMP 35.5; O2SAT 97
--- NOTE | 2022-05-06 15:04 | W.PM.DSUDISC ---
Discharge Plan Disposition Patient Disposition: HOME Condition: Good Discharge Details Reason For Visit: Right Breast biopsy Attending Provider: Elina Hobson Primary Care Provider: Jesi Aguirre Home Meds and New Rx's Prescriptions: Continued vitamin E (dl, acetate) 180 mg (400 unit) capsule 180 mg PO BID Rx Instructions: LIVER MD duloxetine 20 mg capsule,delayed release(DR/EC) 20 mg PO DAILY multivitamin Tablet 1 tab PO DAILY turmeric root extract 500 mg capsule 500 mg PO DAILY magnesium oxide 400 mg magnesium tablet 400 mg PO DAILY vitamin E 400 unit capsule 800 unit PO DAILY Rx Instructions: [facility] for liver disease acetaminophen 500 mg tablet 1,000 mg PO BID PRN Rx Instructions: Per [facility]--limit to 2G/24 h for knee pain given liver disease; avoid NSAIDs topiramate 50 mg tablet 50 mg PO BID Label Comments: [facility] alprazolam 2 mg tablet extended release 24 hr See Rx Instructions PO TID PRN Rx Instructions: PO three times a day PRN; 1 MG AM, .5 MG NOON, 1 MG PM NK (DME) Blood Glucose Test Strip See Rx Instructions .MEDSUPPLY Qty: 100 3RF Rx Instructions: As directed to check blood glucose daily. No insulin. Dispense covered brand. (DME) lancets Misc See Rx Instructions .MEDSUPPLY Qty: 100 3RF Rx Instructions: As directed to check blood glucose daily. On insulin. Dispense covered brand. betamethasone valerate 0.1 % lotion 1 applic topical BID PRN (Reason: skin irritation) Qty: 60 0RF Rx Instructions: Apply thin layer to skin behind ears & along hairline BID PRN sanjuana derm itch. lactulose 10 gram/15 mL (15 mL) solution 15 - 30 ml PO TID PRN (Reason: constipation) Qty: 600 0RF simvastatin 20 mg tablet 20 mg PO QHS Qty: 90 3RF lamotrigine [Lamictal] 25 mg tablet 50 mg PO BID Rx Instructions: Per AIME perez 10/04/21 quetiapine 150 mg tablet extended release 24 hr 150 mg PO QHS Rx Instructions: AIME trazodone 100 mg tablet 200 mg PO QHS Rx Instructions: AIME hyoscyamine sulfate 0.125 mg tablet,disintegrating 0.125 mg PO DAILY MDD 0.25mg PRN (Reason: dyspepsia/abdominal cramping) Qty: 120 3RF Rx Instructions: Abdominal cramping PRN metformin 500 mg tablet 250 mg PO BID MDD 1000mg Qty: 120 3RF Hold Instructions: Home Medication placed on hold at Doctor's office Rx Instructions: Diabetes; take with food ondansetron 4 mg tablet,disintegrating 4 mg PO Q12H PRN (Reason: nausea and vomiting) Qty: 150 3RF Rx Instructions: PRN N/V quetiapine [Seroquel] 100 mg tablet 50 mg PO .PM levothyroxine 125 mcg tablet 187.5 mcg PO DAILY Qty: 135 3RF omeprazole 40 mg capsule,delayed release(DR/EC) 40 mg PO BID Qty: 180 3RF ascorbic acid (vitamin C) [Vitamin C] 500 MG tablet 500 mg PO DAILY hydroxyzine HCl 10 mg Tablet 10 mg Discharge Instructions Additional Instructions: Activity at Home after surgery: 1. As tolerated Diet, Nutrition, & wound healin. As tolerated Pain Medications: 1. Tylenol 650mg every 6 hours as needed Other: 1. You may shower daily. Do not scrub the incisions Wound Care: 1. Keep the incisions clean and dry Please call our office if you develop: 1. Fevers >101.5 2. Nausea or Vomiting 3. Worsening pain 4. Redness and thick discharge from the wounds If after hours please call the Hospital at and ask to speak to the on-call surgeon Activity:: Activity as Tolerated Remove Dressings/Wound Care:: 24 hours Shower/Bathe:: 24 hours Diet:: As Tolerated Discharge Orders Discharge Orders: Discharge Order (Routine); Ordered 05/06/22 Ordered By: Elina Hobson DS: Diagnosis Discharge Diagnosis (1) Mass of right breast: Status: Acute
--- NOTE | 2022-05-06 15:06 | DI.US_ITS ---
Exam(s) US OR GUIDANCE EXAM: US OR GUIDANCE CLINICAL HISTORY: RT BREAST MASS,ultrasound guided bx TECHNIQUE: Ultrasound performed using standard protocol. COMPARISON: MG MG MAMMO SCREENING from 03/21/2022 MG MG MAMMO SCREEN CALL BACK UNI from 04/27/2022 US US BREAST RT COMPLETE from 04/27/2022 US US BREAST LT COMPLETE from 04/27/2022 FINDINGS: Ultrasound was provided for Dr. Hobson during breast biopsy the previously noted is mass was localiz ed. A biopsy marker clip was placed. Please see procedure note for details. DATA REPOSITORY:
--- NOTE | 2022-05-06 15:07 | W.PM.OP ---
Date of service: 05/06/22 Time of Service: 15:07 Operative Note Operative Note DATE OF PROCEDURE: 05/06/22 PRE-OP DIAGNOSIS: Right Breast mass POST-OP DIAGNOSIS: same PROCEDURE: US guided Core needle biopsy SURGEON: Elina Hobson ANESTHESIA TYPE: General:No Airway Refer to Anesthesia Record ESTIMATED BLOOD LOSS: 5 PATHOLOGY: other (Core biopsy) COMPLICATIONS: None Patient was transported to: same day Patient's condition: stable Indications: Flora is a pleasant 57 year old female with an abnormal mammogram and US of her right Breast. She ahs a family history of Breast cancer in her mother and 2 maternal aunts.? US guided core needle biopsy was recommended. Risks, benefits and complications were reviewed.? Complications include but are not limited to bleediing, pain, infection and need for further surgery if non-diagnostic biopsy.? Questions were entertained and answered to her satisfaction and she wished to proceed. No guarantees were given or implied. Proceed with Core needle biopsy under US guidence. Procedure Description: After informed consent was obtained the patient was taken to the Operating room and placed in a supine position. Monitors were applied and a time out was done. The patients name, , Procedure, site, antibiotic prophilaxis and allergies were reviewed. Fire risk was assessed. Next an Us was done of the Breast and the lesion was localized by the US tech. The skin was cleaned with chlorprep and infiltrated with 1% Lidocaine, 3 cc. An incision was made with an 15 blade. Using a 14 gauge core needle 3 specimens were removed and placed on telfa and placed in formalin. A small titanium clip was then placed into the lesion. The skin was cleaned and dried and a band aid was applied. The patient tolerated the procedure well and there were no immediate complications. The patient was woken up and taken back to [facility] in stable condition.
[2022-05-06 15:29] VITALS: BP 123/65; PULSE 74; RESP 16; TEMP 36.4; O2SAT 96
--- NOTE | 2022-05-09 06:46 | W.ANESPOSTOP ---
Postoperative Evaluation Date, Time and Location Date Performed: 05/09/22 Time Performed: 06:46 Patient Location: Day Surgery Unit Vital Signs Most Recent Imported Vital Signs: Most Recent Vital Signs Temp Pulse Resp BP Pulse Ox 36.4 C L 74 16 123/65 96 05/06/22 15:29 05/06/22 15:29 05/06/22 15:29 05/06/22 15:29 05/06/22 15:29 Pain Score Most Recent Pain Score: Most Recent Pain Score Pain Level 0 05/06/22 15:29 Assessment Mental Status: Awake (Alert & Oriented to Patient Baseline) Airway and Respiratory Function: Patent airway with normal (patient baseline) respiratory exam Cardiovascular Function: Hemodynamically Stable Hydration Status: Adequately Hydrated Nausea & Vomiting: No Nausea or Vomiting Pain: Pt. Denies Any Pain Peripheral Nerve Block: Patient did not receive a nerve block Postoperative Comments:: Patient seen monday, however, postop vital signs not entered prior to this provider leaving for the day. Patient discharged before call provider could check in with her.
== END 2022-05-06 15:50 | disposition home or self-care (01) ==
PROVIDERS: PCP Nurse Practitioner Adult Health; Visit Provider Surgery
PROC: (CPT 19083; principal; 2022-05-06 13:00)
DX: C50.211 Malignant neoplasm of upper-inner quadrant of right female breast (principal); Z80.3 Family history of malignant neoplasm of breast
CPT/HCPCS: 19083; 76998; 88305; 88360; 88368; J2250; J2704

== ENCOUNTER 2022-05-13 16:54 | Outpatient (REF) | payer MEDICARE, OTHER, SELFPAY ==
[2022-05-13 20:54] LABS: Abs Immature Grans 0.01 10^3/uL (0.0-0.06); Absolute Basophil Count 0.02 10^3/uL (0.0-0.2); Absolute Eosinophil Count 0.01 10^3/uL (0.0-0.7); Absolute Lymphocyte Count 1.41 10^3/uL (1.2-3.4); Absolute Monocyte Count 0.24 10^3/uL (0.1-0.8); Absolute Neutrophil Count 2.29 10^3/uL (1.2-6.7); Basophils % 0.5; Eosinophils % 0.3; HCT 41.8 % (36.0-46.0); HGB 13.5 g/dL (11.2-15.7); Immature Grans % 0.3; Lymphocytes % 35.4; MCH 27.9 pg (27.0-33.0); MCHC 32.3 % (32.0-36.0); MCV 86 fL (80-95); MPV 10.9 fL (8.0-11.0); Neutrophils % 57.5; Platelet Count 103 10^3/uL (130-400); RBC 4.84 10^6/uL (3.93-5.22); RDW 14.7 % (11.7-14.6); RDW-SD 46.5 fL; WBC 3.98 10^3/uL (4.4-10.8)
[2022-05-13 21:34] LABS: ALT 32 U/L (14-59); AST 35 U/L (15-37); Albumin 4.3 g/dL (3.4-5.0); Alkaline Phosphatase 155 U/L (46-116); Anion Gap 10.8 mmol/L (3-11); BUN 10 mg/dL (7-18); Bilirubin, Total 0.6 mg/dL (0.2-1.0); CO2 25.2 mmol/L (21.0-32.0); CREATININE 0.9 mg/dL (0.55-1.02); Calcium 9.3 mg/dL (8.5-10.1); Chloride 106 mmol/L (98-107); Glucose 96 mg/dL (74-106); Potassium 4.1 mmol/L (3.5-5.1); Sodium 142 mmol/L (136-145); TSH (W/Ref FT4) 0.03 uIU/mL (0.36-3.74); Total Protein 7.3 g/dL (6.4-8.2); Vitamin B12 802 pg/mL (193-986)
[2022-05-13 21:50] LABS: FREE T4 1.44 ng/dL (0.76-1.46)
== END 2022-05-13 16:55 | disposition home or self-care (01) ==
LOC: LBN 16:54
PROVIDERS: PCP Nurse Practitioner Adult Health; Visit Provider Nurse Practitioner Adult Health
DX: R53.83 Other fatigue (principal); R23.3 Spontaneous ecchymoses; R26.89 Other abnormalities of gait and mobility; K74.60 Unspecified cirrhosis of liver; G47.00 Insomnia, unspecified
CPT/HCPCS: 80053; 82607; 84439; 84443; 85025

== ENCOUNTER → 2022-10-25 01:26 | Outpatient (CLI) | payer MEDICARE, OTHER, SELFPAY ==
--- NOTE | 2022-10-25 | DI.MRI_ITS ---
Exam(s) MR BRAIN WO/W EXAM: MR BRAIN WO/W CLINICAL HISTORY: RT BREAST CANCER C50.911 TENSION HEADACHE G44.219 TECHNIQUE: Multiplanar multisequence MRI of the brain was performed. Both noninfused and contrast i nfused sequences were performed. IV Contrast injected was 17 cc Dotarem. COMPARISON: No exams were available for comparison FINDINGS: CEREBRAL PARENCHYMA: No evidence of intracranial hemorrhage, mass effect nor shift of midline structu re. No extraaxial fluid collections. Ventricles are not enlarged nor shifted. There is no significant focal signal abnormality in the cerebellar hemispheres nor within the deepak, m idbrain, and thalami. There are few nonspecific foci of signal abnormality periventricular and subcortical white matter, th vanessa not associated with hemorrhage, surrounding edema nor restricted diffusion. Also no enhancement at these findings nor elsewhere in the brain. There are no ring enhancing lesions in the brain. The re is no abnormal meningeal enhancement, focal nor diffuse. PITUITARY GLAND: No mass nor parasellar abnormality. No obvious abnormality in the cavernous sinuses. FLOW VOIDS: The expected flow void are noted. No evidence of obvious aneurysm nor obvious vascular ma lformation. PARANASAL SINUSES: The visualized paranasal sinuses appear unremarkable. ORBITS: No obvious abnormal findings. IMPRESSION: 1. There are few nonspecific foci of white matter signal abnormality seen on FLAIR images. These are nonhemorrhagic and do not exhibit surrounding edema nor enhancement. Unlikely to represent metastat ic disease, given the history here. There are no ring enhancing lesions in the brain and there is no abnormal meningeal enhancement. DATA REPOSITORY:
--- NOTE | 2022-10-25 | DI.MRI_ITS ---
Exam(s) MR CERVICAL SPINE WO/W EXAM: MR CERVICAL SPINE WO/W CLINICAL HISTORY: RT BREAST CANCER C50.911 HEAD AND NECK PAIN TECHNIQUE: Multiplanar multisequence MRI of the cervical spine was performed both pre and post contr ast infused sequences. Contrast infused was 17 mL Dotarem intravenous COMPARISON: MR MR BRAIN WO/W from 10/25/2022 FINDINGS: CERVICOMEDULLARY JUNCTION: Intact with no evidence of cerebellar tonsillar ectopia. No obvious abnor mality of the odontoid process. No evidence of Chiari 1 malformation. CERVICAL SPINAL CORD: There is no abnormal signal in the cervical spinal cord and no evidence of foca l cord atrophy nor focal cord swelling. No cord lesions identified. No epidural or intradural anel s. No abnormal intraosseous enhancement nor abnormal focal enhancement within the cervical spinal ca nal. OSSEOUS:There are no cervical fractures evident. No significant osseous lesions in the cervical vert ebrae. INDIVIDUAL LEVELS: C2-3: No disc herniation nor central canal stenosis. No foraminal stenosis. No facet arthropathy. C3-4: No disc herniation nor central canal stenosis.No facet arthropathy. No foraminal stenosis. C4-5: Mild disc height decreased. Posteriorly there is annular bulging which indents the thecal sac and contacts and slightly flattens the anterior aspect of the cervical spinal cord, resulting in mild central canal stenosis at this level. There is no facet arthropathy at this level and no significan t foraminal stenosis evident. There are no Luschka joint osteophytes at this level. C5-6: Normal disc height. Mild annular bulging without a dominant disc herniation. Central canal di mensions are lower normal. No abnormal signal in the cord. No facet arthropathy evident at this lev el and no significant foraminal stenosis. No abnormal enhancement C6-7: Normal disc height and signal. No disc herniation or central canal stenosis. No facet arthrop athy. No foraminal stenosis. No abnormal enhancement C7-T1: No disc herniation nor central canal stenosis. No facet arthropathy.No foraminal stenosis. No abnormal enhancement. IMPRESSION: 1. The main findings are at C 4-5 level where there is posterior annular bulging which flattens the a nterior aspect of the thecal sac and anterior aspect the spinal cord with mild central canal stenosis at this level. The AP dimension of the canal is 8 millimeters at this level. There is no significa nt foraminal stenosis. No facet arthropathy. No abnormal signal in the cervical spinal cord at this level. 2. No evidence of metastatic disease in the cervical spinal canal, given the history here. No abnorm al focal enhancement. DATA REPOSITORY:
[2022-10-25 12:27] LABS: ALT 28 U/L (14-59); AST 27 U/L (15-37); Albumin 3.9 g/dL (3.4-5.0); Alkaline Phosphatase 152 U/L (46-116); Anion Gap 8.3 mmol/L (3-11); BUN 10 mg/dL (7-18); Bilirubin, Total 0.5 mg/dL (0.2-1.0); CO2 25.7 mmol/L (21.0-32.0); CREATININE 0.9 mg/dL (0.55-1.02); Calcium 9.2 mg/dL (8.5-10.1); Chloride 108 mmol/L (98-107); Estimated GFR 75.03 (mL/min/1.73m2); Glucose 128 mg/dL (74-106); Potassium 3.8 mmol/L (3.5-5.1); Sodium 142 mmol/L (136-145); Total Protein 7.1 g/dL (6.4-8.2)
[2022-10-25] MEDS: Normal Saline Flush 10 ML SYR IVP (12:49)
[2022-10-25] MEDS: Gadoterate meglumine 20 ML VIAL 17 ML IVP (12:50)
== END ==
PROVIDERS: Physician Assistant Medical; PCP Nurse Practitioner Adult Health; Visit Provider Radiology Radiation Oncology
DX: C50.911 Malignant neoplasm of unspecified site of right female breast (principal); M50.221 Other cervical disc displacement at C4-C5 level
CPT/HCPCS: 70553; 80053; 72156

== ENCOUNTER 2022-12-28 03:04 | Outpatient (CLI) | payer MEDICARE, OTHER, SELFPAY | END 2022-12-28 03:05 | disposition home or self-care (01) | PROVIDERS: PCP Nurse Practitioner Adult Health; Visit Provider Nurse Practitioner Adult Health | DX: E03.9 Hypothyroidism, unspecified (principal) | CPT/HCPCS: 36415; 84439; 84443 ==

== ENCOUNTER 2023-01-13 00:50 | Outpatient (CLI) | payer MEDICARE, OTHER, SELFPAY ==
--- NOTE | 2023-01-13 07:00 | DI.US_ITS ---
Exam(s) US ABDOMEN LIMITED EXAM: US ABDOMEN LIMITED CLINICAL HISTORY: LAUGHLIN CIRRHOSIS, SCREEN FOR HCC, K75.81, 74.60 TECHNIQUE: Ultrasound abdomen performed using standard protocol. COMPARISON: US US ABDOMEN from 12/28/[address] ABDOMEN PELVIS W from 08/17/2021 FINDINGS: PANCREAS: Normal where visualized. LIVER: The liver has a nodular contour. Hepatopedal flow in the Portal Vein. The liver measures in 1 8.2 cm length. GALLBLADDER: No evidence of cholelithiasis. No evidence of wall thickening. No pericholecystic fluid identified. BILIARY SYSTEM: Common bile duct measures 8 mm. No intrahepatic biliary ductal dilation. BRADSHAW'S SIGN: Negative. RIGHT KIDNEY: Kidney is normal in size. No evidence of renal calculi. No evidence of hydronephrosis. No renal mass or cyst identified. ASCITES: Small amount of perihepatic ascites. IMPRESSION: 1. Findings suggestive of hepatic cirrhosis with a nodular contour of the liver and mild hepatomegaly . 2. Small perihepatic ascites. DATA REPOSITORY:
== END 2023-01-13 01:10 ==
LOC: DI 00:51
PROVIDERS: PCP Nurse Practitioner Adult Health; Visit Provider Physician Assistant Medical
DX: K75.81 Nonalcoholic steatohepatitis (NASH) (principal); K74.60 Unspecified cirrhosis of liver; R18.8 Other ascites
CPT/HCPCS: 76705

== ENCOUNTER 2023-02-21 02:57 | Outpatient (CLI) | payer MEDICARE, OTHER, SELFPAY ==
[2023-02-21 13:54] LABS: TSH (W/Ref FT4) 3.24 uIU/mL (0.36-3.74)
== END 2023-02-21 02:58 | disposition home or self-care (01) ==
PROVIDERS: Visit Provider Nurse Practitioner Adult Health
DX: E03.9 Hypothyroidism, unspecified (principal)
CPT/HCPCS: 36415; 84443

== ENCOUNTER 2023-11-03 01:51 | Outpatient (CLI) | payer MEDICARE, OTHER, SELFPAY ==
[2023-11-03 09:49] LABS: Hemoglobin A1C 4.9 % (<5.7)
[2023-11-03 10:32] LABS: ALT 24 U/L (14-59); AST 25 U/L (15-37); Albumin 3.9 g/dL (3.4-5.0); Alkaline Phosphatase 109 U/L (46-116); Anion Gap 9.1 mmol/L (3-11); BUN 10 mg/dL (7-18); Bilirubin, Total 0.7 mg/dL (0.2-1.0); CO2 25.9 mmol/L (21.0-32.0); CREATININE 1.1 mg/dL (0.55-1.02); Calcium 8.9 mg/dL (8.5-10.1); Calculated LDL 90 mg/dL (<100); Chloride 106 mmol/L (98-107); Cholesterol 186 mg/dL (<200); Estimated GFR 58.61 (mL/min/1.73m2); Glucose 100 mg/dL (74-106); HDL Cholesterol 59 mg/dL (40-60); Potassium 3.7 mmol/L (3.5-5.1); Sodium 141 mmol/L (136-145); TSH (W/Ref FT4) 2.81 uIU/mL (0.36-3.74); Total Protein 7.1 g/dL (6.4-8.2); Triglyceride 189 mg/dL (<150); Vitamin B12 702 pg/mL (193-986)
[2023-11-03 11:14] LABS: Vitamin D 25 Total 41.2 ng/mL (30-100)
== END 2023-11-03 01:52 | disposition home or self-care (01) ==
LOC: LBO 01:52
PROVIDERS: Absent Provider Nurse Practitioner Adult Health; PCP Nurse Practitioner Adult Health; Visit Provider Nurse Practitioner Adult Health
DX: E11.9 Type 2 diabetes mellitus without complications (principal); E78.5 Hyperlipidemia, unspecified; M81.8 Other osteoporosis without current pathological fracture; K74.60 Unspecified cirrhosis of liver; G47.00 Insomnia, unspecified; E03.9 Hypothyroidism, unspecified
CPT/HCPCS: 36415; 80053; 80061; 82306; 82607; 83036; 84443

== ENCOUNTER → 2023-11-14 02:07 | Outpatient (CLI) | payer MEDICARE, OTHER, SELFPAY ==
--- NOTE | 2023-11-14 06:30 | DI.US_ITS ---
Exam(s) US ABDOMEN EXAM: US ABDOMEN CLINICAL HISTORY: Assess degrees of ascites,F/U CIRRHOSIS,K74.60,Z87.898 TECHNIQUE: Ultrasound of complete upper abdomen performed using standard protocol. COMPARISON: CT CT ABDOMEN PELVIS W from 08/17/2021 US US ABDOMEN LIMITED from 01/13/2023 FINDINGS: There is a small amount of perihepatic ascites LIVER: Liver is slightly prominent and exhibits a somewhat nodular surface and mild generalized hyper echo echo-pattern consistent with element of steatosis and developing cirrhosis. There are no discr ete focal hepatic lesions evident. GALLBLADDER/BILIARY: There are no gallstones. No gallbladder wall edema nor pericholecystic fluid. The common hepatic duct isnot dilated, measuring 4-5mm at the level of brigitte hepatis. PANCREAS: There is no evidence of pancreatic mass nor dilatation of the pancreatic duct. SPLEEN: There is splenomegaly again noted. Spleen measures 21 cm length. Splenic vein diameter is m ildly increased KIDNEYS:Kidneys exhibit normal size with no evidence of solid mass, calculus, nor hydronephrosis. No cortical cysts evident. ABDOMINAL AORTA: There is no evidence of abdominal aortic aneurysm. IVC: Normal diameter where visualized. IMPRESSION: 1. Hepatic cirrhosis and splenomegaly. There is also a small amount of perihepatic ascites now evid ent. Suspect portal venous hypertension 2. No gallstones nor dilatation of the biliary tree DATA REPOSITORY:
== END ==
PROVIDERS: PCP Nurse Practitioner Adult Health; Visit Provider Nurse Practitioner Adult Health
DX: R16.2 Hepatomegaly with splenomegaly, not elsewhere classified (principal); Z87.898 Personal history of other specified conditions
CPT/HCPCS: 76700

== ENCOUNTER → 2024-04-17 09:56 | Outpatient (CLI) | payer MEDICARE, OTHER, SELFPAY ==
--- NOTE | 2024-04-17 09:15 | DI.RAD_ITS ---
Exam(s) XR ARTHRITIS SERIES EXAM: XR ARTHRITIS SERIES CLINICAL HISTORY: B/L hands feet--pain MCP, MTP, PIPs M25.541 M25.542 M25.571 M25.572. TECHNIQUE: 2D digital imaging was performed. Two views of both hands. COMPARISON: CR RIGHT HAND COMPLETE from 07/08/2014 FINDINGS: BONES: No acute fracture is present. No erosive or productive bony lesions are seen. JOINTS: No dislocation or subluxation present. Arar-yr-oebzcsxd narrowing is noted of the interphala ngeal joints of the fingers and some. Mild periarticular spurring. There are ootn-gf-ijnkimiv degen erative changes at the 1st carpal metacarpal joint and minimal degenerative changes the right 1st car pal metacarpal joint. Is mild bilateral negative ulnar variance. Degenerative changes are noted at the distal radial ulnar joint on the right. SOFT TISSUE: Normal. IMPRESSION: Findings consistent with osteo arthritis. No erosive changes. DATA REPOSITORY: RADIATION DOSE DELIVERED:
--- NOTE | 2024-04-17 11:00 | DI.RAD_ITS ---
Exam(s) XR FOOT LT COMPLETE EXAM: XR FOOT LT COMPLETE CLINICAL HISTORY: pain m79.672 pain left foot. TECHNIQUE: 2D digital imaging was performed. Three views. COMPARISON: CR XR FOOT RT COMPLETE from 04/17/2024 FINDINGS: BONES: No acute fracture is present. No bony destructive lesion is seen. The enthesophyte at Achill es insertion on calcaneus. JOINTS: No dislocation present. Plantar arch is maintained. Degenerative changes at the 1st MTP alison int. SOFT TISSUE: Normal. IMPRESSION: No acute abnormality. DATA REPOSITORY: RADIATION DOSE DELIVERED:
--- NOTE | 2024-04-17 11:00 | DI.RAD_ITS ---
Exam(s) XR FOOT RT COMPLETE EXAM: XR FOOT RT COMPLETE CLINICAL HISTORY: pain m79.671 pain rt foot. TECHNIQUE: 2D digital imaging was performed. Three views. COMPARISON: No exams were available for comparison FINDINGS: BONES: No acute fracture is present. No bony destructive lesion is seen. Tiny enthesophyte at Achill es insertion on the calcaneus. JOINTS: No dislocation present. Mild degenerative changes of the 1st MTP joint. No hallux valgus. Plantar arch is maintained. SOFT TISSUE: Normal. IMPRESSION: Minimal degenerative changes. DATA REPOSITORY: RADIATION DOSE DELIVERED:
== END ==
PROVIDERS: PCP Nurse Practitioner Adult Health; Visit Provider Nurse Practitioner Adult Health
DX: M25.571 Pain in right ankle and joints of right foot; M25.572 Pain in left ankle and joints of left foot; M19.041 Primary osteoarthritis, right hand; M19.042 Primary osteoarthritis, left hand
CPT/HCPCS: 36415; 80061; 85027; 86200; 73120; 73630; 83036; 84443; 86431

== ENCOUNTER 2024-04-17 11:46 | Outpatient (CLI) | payer MEDICARE, OTHER, SELFPAY ==
[2024-04-17 12:00] LABS: HCT 37.5 % (36.0-46.0); HGB 11.9 g/dL (11.2-15.7); MCH 28.9 pg (27.0-33.0); MCHC 31.7 % (32.0-36.0); MCV 91 fL (80-95); MPV 8.9 fL (8.0-11.0); Platelet Count 102 10^3/uL (130-400); RBC 4.12 10^6/uL (3.93-5.22); RDW 15.5 % (11.7-14.6); RDW-SD 51.3 fL; WBC 3.26 10^3/uL (4.4-10.8)
[2024-04-17 12:43] LABS: Hemoglobin A1C 5.4 % (<5.7)
[2024-04-17 13:28] LABS: Calculated LDL 75 mg/dL (<100); Cholesterol 174 mg/dL (<200); HDL Cholesterol 56 mg/dL (40-60); TSH (W/Ref FT4) 2.47 uIU/mL (0.36-3.74); Triglyceride 215 mg/dL (<150)
[2024-04-17 21:50] LABS: Rheumatoid Factor <8.6 IU/mL (<12.0)
[2024-04-18 08:45] LABS: Cyclic Citrullinated Peptide <2.5 U/mL (<5.0)
== END 2024-04-17 11:47 | disposition home or self-care (01) ==
LOC: LBO 11:46
PROVIDERS: PCP Nurse Practitioner Adult Health; Visit Provider Nurse Practitioner Adult Health
DX: E11.9 Type 2 diabetes mellitus without complications (principal); M25.541 Pain in joints of right hand; M25.542 Pain in joints of left hand; M25.571 Pain in right ankle and joints of right foot; M25.572 Pain in left ankle and joints of left foot; D69.6 Thrombocytopenia, unspecified
CPT/HCPCS: 36415; 80061; 85027; 86200; 83036; 84443; 86431

== ENCOUNTER 2024-08-07 00:34 | Outpatient (CLI) | payer MEDICARE, OTHER, SELFPAY ==
--- NOTE | 2024-08-07 | DI.MAMMO_ITS ---
Exam(s) US BREAST LT COMPLETE MG MAMMO SCREENING 60 MIN DUR EXAM: MG MAMMO SCREENING 60 MIN DUR AND COMPLETE LEFT BREAST ULTRASOUND CLINICAL HISTORY: H/O BREAST CANCER, C50.511, Z17.0, SCREENING, Z12.31. TECHNIQUE: Bilateral full field digital CC and MLO mammographic images were obtained with 3D tomosyn thesis and utilizing computer aided detection (CAD). Additional left breast nipple in profile view was performed Complete left breast ultrasound was performed including all 4 quadrants as well as the retroareolar r egion and left axilla. This 59-year-old patient underwent right breast lumpectomy for malignancy 2 years ago. Her mother dot s also diagnosed with breast cancer (mastectomy) and has been recently diagnosed with cancer in the o pposite remaining breast. COMPARISON: Prior mammograms were reviewed. FINDINGS: Right breast medial scarring from lumpectomy is noted. No new significant left breast findings. In the LEFT breast there is a small well-defined lobulated noncalcified nodule noted anteriorly. Thi s measures 7 x 6 mm on the CC view and is located 1 cm lateral to the nipple. This nodule is unchang ed in size from mammogram of 03/21/2022. It is also evident on a left breast MLO view of the mammogr am performed 08/22/2017. There are no malignant-appearing microcalcification groups in this region nor elsewhere in either tang ast. There is no significant architectural distortion nor skin thickening-retraction. COMPLETE LEFT BREAST ULTRASOUND: There is a solitary finding in all 4 quadrants, this corresponding to the finding on the mammogram, l ocated central at the 1 o'clock position. This is a slightly lobulated solid 7 x 5 mm nodule with ne utral through transmission and no obvious internal calcifications. It does not appear to be located within a dilated duct. There are no other focal ultrasound findings in all 4 quadrants. Scanning of the ipsilateral-left axilla is negative for significant adenopathy. IMPRESSION: 1. Relatively stable appearance of the right breast lumpectomy site. No radiographic evidence of mal ignancy in the right breast. 2. Retroareolar region 7 x 5 mm noncalcified lobulated nodule in the left breast which is solid on ul trasound performed today. However, it appears to have been present on prior mammograms dating back 2016. Therefore, probably benign but nevertheless may represent papilloma given its location or sm all fibroadenoma. 3. Recommend referral to breast oncology/breast surgery for further evaluation. Findings discussed by myself with the patient today. Findings also called by myself today to the physician hospital clinic assistant at [facility]. They are going to arrange to have her be seen for this. BI-RADS Category 4 - Suspicious Abnormality: Biopsy should be considered Breast Density - Category C - Heterogeneously dense Breast density Category C or D implies that the patient has dense breast tissue. Dense breast tissue can make it harder to find cancer on a mammogram. Dense breast tissue is also associated with an incr eased risk of breast cancer. This information about the result of the mammogram report was provided to the patient to raise their awareness. Use this report when you speak with the patient about their risks for breast cancer, which includes their family history. At that time, you may recommend additional screening tests (Ultrasoun d or MRI) as these tests may add significant information. A negative radiographic report should not delay biopsy if a dominant or clinically suspicious mass is present. Up to ten percent of cancers are not identified on mammography. A negative report may reinforce clinical impression. Adenosis and dense breasts may obscure an underlying neoplasm. False positive reports average 6 to 10%. Patient will receive a letter notifying them of these results.
== END 2024-08-07 00:54 ==
LOC: DI 00:34
PROVIDERS: PCP Nurse Practitioner Adult Health; Visit Provider Physician Assistant Medical
DX: R92.8 Other abnormal and inconclusive findings on diagnostic imaging of breast (principal); Z12.31 Encounter for screening mammogram for malignant neoplasm of breast
CPT/HCPCS: 76642; 77063; 77067

== ENCOUNTER 2024-10-15 13:34 | Outpatient (REF) | payer MEDICARE, OTHER, SELFPAY | END 2024-10-15 13:35 | disposition home or self-care (01) | LOC: LBN 13:34 | PROVIDERS: PCP Nurse Practitioner Adult Health; Visit Provider Nurse Practitioner | DX: R30.0 Dysuria (principal) | CPT/HCPCS: 87077; 87086; 87186 ==

== ENCOUNTER 2024-11-07 04:58 | Outpatient (CLI) | payer MEDICARE, OTHER, SELFPAY ==
[2024-11-07 11:59] LABS: TSH (W/Ref FT4) 7.59 uIU/mL (0.36-3.74)
[2024-11-07 12:25] LABS: FREE T4 0.92 ng/dL (0.76-1.46)
== END 2024-11-07 04:59 | disposition home or self-care (01) ==
LOC: LBO 04:58
PROVIDERS: PCP Nurse Practitioner Adult Health; Visit Provider Nurse Practitioner
DX: E03.9 Hypothyroidism, unspecified (principal)
CPT/HCPCS: 36415; 84439; 84443

== ENCOUNTER 2025-05-21 02:30 | Outpatient (CLI) | payer MEDICARE, OTHER, SELFPAY ==
[2025-05-21 11:38] LABS: Abs Immature Grans 0.02 10^3/uL (0.0-0.06); HCT 40.7 % (36.0-46.0); HGB 12.8 g/dL (11.2-15.7); Immature Grans % 0.5 %; MCH 27.2 pg (27.0-33.0); MCHC 31.4 % (32.0-36.0); MCV 86 fL (80-95); MPV 8.9 fL (8.0-11.0); Platelet Count 108 10^3/uL (130-400); RBC 4.71 10^6/uL (3.93-5.22); RDW 16.3 % (11.7-14.6); RDW-SD 51.1 fL; WBC 4.06 10^3/uL (4.4-10.8)
[2025-05-21 12:40] LABS: ALT 32 U/L (14-59); AST 34 U/L (15-37); Albumin 4.1 g/dL (3.4-5.0); Alkaline Phosphatase 111 U/L (46-116); Anion Gap 9.3 mmol/L (3-11); BUN 8 mg/dL (7-18); Bilirubin, Total 0.6 mg/dL (0.2-1.0); CO2 27.7 mmol/L (21.0-32.0); Calcium 9.3 mg/dL (8.5-10.1); Chloride 103 mmol/L (98-107); Estimated GFR 57.88 (mL/min/1.73m2); Glucose 175 mg/dL (74-106); Potassium 3.6 mmol/L (3.5-5.1); Sodium 140 mmol/L (136-145); TSH (W/Ref FT4) 8.74 uIU/mL (0.36-3.74); Total Protein 7.5 g/dL (6.4-8.2)
== END 2025-05-21 02:31 | disposition home or self-care (01) ==
PROVIDERS: PCP Nurse Practitioner Adult Health; Visit Provider Internal Medicine
DX: Z79.811 Long term (current) use of aromatase inhibitors (principal); E03.9 Hypothyroidism, unspecified
CPT/HCPCS: 36415; 80053; 84439; 84443; 85025

== ENCOUNTER 2025-07-15 01:32 | Outpatient (CLI) | payer MEDICARE, OTHER, SELFPAY ==
[2025-07-15 13:06] LABS: TSH (W/Ref FT4) 4.03 uIU/mL (0.36-3.74)
== END 2025-07-15 01:33 | disposition home or self-care (01) ==
LOC: LBO 07-16 01:32
PROVIDERS: PCP Nurse Practitioner Adult Health; Visit Provider Nurse Practitioner Adult Health
DX: E03.9 Hypothyroidism, unspecified (principal)
CPT/HCPCS: 36415; 84439; 84443

== ENCOUNTER 2025-08-11 13:40 | Outpatient (CLI) | payer MEDICARE, OTHER, SELFPAY ==
--- NOTE | 2025-08-11 13:30 | DI.RAD_ITS ---
Exam(s) XR TIB/FIB RT EXAM: XR TIB/FIB RT CLINICAL HISTORY: proximal tibial lump; r/o fx W19.XXXA FALL S80.11XA CONTUSION. TECHNIQUE: 2D digital imaging was performed of the right tibia and fibula. Two images were obtained. AP and lateral views were obtained. COMPARISON: No exams were available for comparison FINDINGS: BONES: No acute fracture is present. No bony destructive lesion is seen. Visualized portion of knee and ankle joints are unremarkable. SOFT TISSUE: Normal. IMPRESSION: Unremarkable radiographs of the right tibia and fibula. DATA REPOSITORY: RADIATION DOSE DELIVERED:
== END 2025-08-11 14:00 ==
LOC: DI 13:41
PROVIDERS: PCP Nurse Practitioner Adult Health; Visit Provider Nurse Practitioner Adult Health
DX: S80.11XA Contusion of right lower leg, initial encounter (principal); W19.XXXA Unspecified fall, initial encounter
CPT/HCPCS: 73590

== ENCOUNTER 2025-08-15 04:16 | Outpatient (CLI) | payer MEDICARE, OTHER, SELFPAY ==
[2025-08-15 11:59] LABS: Abs Immature Grans 0.01 10^3/uL (0.0-0.06); HCT 40.4 % (36.0-46.0); HGB 13.0 g/dL (11.2-15.7); Immature Grans % 0.3 %; MCH 28.1 pg (27.0-33.0); MCHC 32.2 % (32.0-36.0); MCV 87 fL (80-95); MPV 8.6 fL (8.0-11.0); Platelet Count 102 10^3/uL (130-400); RBC 4.62 10^6/uL (3.93-5.22); RDW 14.6 % (11.7-14.6); RDW-SD 46.4 fL; WBC 3.78 10^3/uL (4.4-10.8)
[2025-08-15 12:12] LABS: Ammonia 37 umol/L (11-32)
[2025-08-15 12:57] LABS: ALT 29 U/L (14-59); AST 27 U/L (15-37); Albumin 4.0 g/dL (3.4-5.0); Alkaline Phosphatase 105 U/L (46-116); Anion Gap 13.0 mmol/L (3-11); BUN 10 mg/dL (7-18); Bilirubin, Total 0.7 mg/dL (0.2-1.0); CO2 23.0 mmol/L (21.0-32.0); Calcium 9.0 mg/dL (8.5-10.1); Chloride 100 mmol/L (98-107); Estimated GFR 52.14 (mL/min/1.73m2); Glucose 192 mg/dL (74-106); Potassium 3.6 mmol/L (3.5-5.1); Sodium 136 mmol/L (136-145); TSH (W/Ref FT4) 4.39 uIU/mL (0.36-3.74); Total Protein 7.3 g/dL (6.4-8.2); Vitamin B12 868 pg/mL (193-986)
[2025-08-15 13:03] LABS: Folate > 20.0 ng/mL (8.6-20.0)
[2025-08-15 22:24] LABS: HIV-1/2 Ag & Ab Screen Negative (Negative)
[2025-08-18 12:04] LABS: Syphilis Serology (RPR) Negative (Negative)
== END 2025-08-15 04:17 | disposition home or self-care (01) ==
LOC: LBO 04:16
PROVIDERS: PCP Nurse Practitioner Adult Health; Referring Provider Nurse Practitioner Adult Health; Visit Provider Nurse Practitioner Adult Health
DX: D69.6 Thrombocytopenia, unspecified (principal); K74.60 Unspecified cirrhosis of liver; R18.8 Other ascites; R41.3 Other amnesia
CPT/HCPCS: 36415; 80053; 87389; 82140; 82607; 82746; 84439; 84443; 85025; 86592

== ENCOUNTER → 2025-08-29 03:36 | Outpatient (CLI) | payer MEDICARE, OTHER, SELFPAY ==
--- NOTE | 2025-08-29 11:15 | DI.MAMMO_ITS ---
Exam(s) MG MAMMO SCREENING 60 MIN DUR EXAM: MG MAMMO SCREENING 60 MIN DUR CLINICAL HISTORY: CANCER OF R BREAST, UNSPECIFIED ESTROGEN RECEPTOR STATUS, C50.911 Z12.31. TECHNIQUE: Bilateral full field digital CC and MLO mammographic images were obtained with 3D tomosynthesis and utilizing computer aided detection (CAD). COMPARISON: Prior mammograms were reviewed. Prior ultrasound reviewed This 60-year-old patient underwent right breast lumpectomy for malignancy 3 years ago. Her mother has been diagnosed with breast cancer in both breasts FINDINGS: There are no CAD designations. Medial right breast lumpectomy site appears stable. There are no new right breast findings. In the left breast the previously described retroareolar region 7 x 6 mm nodule approximately 1 cm lateral to the nipple is again unchanged from prior mammograms dating back to at least 2021. This was shown to be a small wider than taller slightly lobulated solid nodule on ultrasound examination of . It did not appear to be within a dilated duct on that ultrasound examination. There were no other ultrasound findings in left breast on that complete ultrasound examination. There are no malignant-appearing microcalcification groups in this region nor elsewhere in either breast. There is no significant architectural distortion nor skin thickening-retraction. IMPRESSION: 1. No radiographic evidence of malignancy in the right breast. Stable appearance of the right breast lumpectomy site. 2. Stable appearance of the solitary 7 x 5 millimeter retro-para areolar region nodule in the left breast (as described above). This has not increased in size from at least 2021. The only mammogram prior to 2021 in our PACS is 2016 which was not tomosynthesis. BI-RADS Category 2 - Benign Findings Breast Density - Category C - The breast are heterogeneously dense, which may obscure small masses. Breast density Category C or D implies that the patient has dense breast tissue. Dense breast tissue can make it harder to find cancer on a mammogram. Dense breast tissue is also associated with an increased risk of breast cancer. This information about the result of the mammogram report was provided to the patient to raise their awareness. Use this report when you speak with the patient about their risks for breast cancer, which includes their family history. At that time, you may recommend additional screening tests (Ultrasound or MRI) as these tests may add significant information. A negative radiographic report should not delay biopsy if a dominant or clinically suspicious mass is present. Up to ten percent of cancers are not identified on mammography. A negative report may reinforce clinical impression. Adenosis and dense breasts may obscure an underlying neoplasm. False positive reports average 6 to 10%. Patient will receive a letter notifying them of these results.
== END ==
LOC: DI 03:36
PROVIDERS: PCP Nurse Practitioner Adult Health; Visit Provider Surgery Surgical Oncology
DX: Z12.31 Encounter for screening mammogram for malignant neoplasm of breast (principal); C50.911 Malignant neoplasm of unspecified site of right female breast
CPT/HCPCS: 77063; 77067